=== PATIENT | male | born 1935 | race Caucasian/White ===

== ENCOUNTER 2021-08-04 09:17 | Inpatient (IN) | payer OTHER, MEDICARE ==
[~2021-08-04] VITALS: Ht 177.8 cm; Wt 90.7 kg
[~2021-08-04 09:17] MED LIST: BACTRIM DS TAB1 EACH PO; COLACE100 MG PO; VICODIN ES TAB1 EACH PO; VITAMINS
[2021-08-04 09:20] VITALS: BP 144/95
[2021-08-04] MEDS ORDERED: VITAMIN E1000 UNIT PO (09:30)
[2021-08-04] MEDS ORDERED: PROSCAR 5MG TABL5 M1 PO (09:30)
[2021-08-04] MEDS ORDERED: FLOMAX0.4 MG PO (09:30)
[2021-08-04] MEDS ORDERED: VITAMIN D310 MC1 PO (09:30)
[2021-08-04 09:49] LABS: ABSOLUTE BASOPHILS 0.1 thou/uL (0.0-0.2); ABSOLUTE EOSINOPHILS 0.4 thou/uL (0.0-0.7); ABSOLUTE LYMPHOCYTES 1.4 thou/uL (0.8-5.3); ABSOLUTE MONOCYTES 0.6 thou/uL (0.0-1.2); ABSOLUTE NEUTROPHILS 3.7 thou/uL (1.6-8.1); BASOPHILS 1.2 %; EOSINOPHILS 5.8 %; HEMATOCRIT 39.8 % (42.0-52.0); HEMOGLOBIN 13.6 gm/dL (14.0-18.0); LYMPHOCYTES 22.5 %; MCH 33.3 pg (26.0-34.0); MCHC 34.2 g/dL (28.0-37.0); MCV 97.3 fL (80.0-100.0); MONOCYTES 9.7 %; MPV 6.8 fl. (7.2-11.1); NUCLEATED RBCS 0 /100WBC; PLATELET COUNT* 257 thou/uL (150-400); POLYS 60.8 %; RBC 4.09 mil/uL (4.50-6.00); RDW-CV 13.9 % (10.5-14.5); WBC 6.2 thou/uL (4.0-11.0)
[2021-08-04 09:55] LABS: CREATININE 0.9 mg/dL (0.6-1.3); POTASSIUM 4.2 mmol/L (3.5-5.1)
[2021-08-04 10:00] LABS: ALBUMIN 3.3 g/dL (3.4-5.0); TOTAL BILIRUBIN 0.5 mg/dL (<0.1-1.0); TOTAL PROTEIN 7.2 g/dL (6.4-8.2)
--- NOTE | 2021-08-04 10:53 | EKG ---
[place] [address] ELECTROCARDIOGRAM REPORT Name: SOHAM PAZ Room: [facility]#: [id number] Admission: 08/04/21 Attend Phys: Discharge: Date of : 35 Date of Service: 08/04/21928 Report #: [id number] THIS REPORT FOR: //name// [facility] ED Test Date: 2021-08-04 Test Time: 09:29:04 Pat Name: RADHAGUSTAVO PAZ Department: Room: Gender: Suture Polisher: : 1935 Requested By: Sarkis Rankin Order Number: [id number] MD: Gucci Lilly Measurements Intervals [place] Rate: 65 P: 43 ND: 218 QRS: -11 QRSD: 121 T: 60 QT: 443 QTc: 461 Interpretive Statements Sinus rhythm Borderline prolonged ND interval nonspecific intraventricular conduction defect Compared to ECG 03/04/2017 14:28:57 no change Electronically Signed On 08-04-2021 10:52:46 PEDIATRIC CARDIOLOGIST by Gucci Lilly [email or web address] <ELECTRONICALLY SIGNED> By: Gucci Lilly MD, FAC 08/04/21 1052 Gucci Lilly MD, [facility] /EPI
[2021-08-04 12:40] LABS: CHOLESTEROL 264 mg/dL (<200); HDL CHOLESTEROL 46 mg/dL (>40); LDL CHOLESTEROL 201 mg/dL (<100); TC:HDL 5.7 Ratio (Not establshd); TRIGLYCERIDE 85 mg/dL (<150); VLDL 17 mg/dL (<40)
[2021-08-04 12:41] LABS: SERUM ASSESSMENT Clear
[2021-08-04 13:18] VITALS: BP 140/83
[2021-08-04 13:25] VITALS: BP 156/86
--- NOTE | 2021-08-04 13:33 | NUR ---
CALL TO SPEECH THERAPY TO GET ESTIMATE ON TIME. SPOKE WITH COREY. SHE STATED THE ORDER WAS NOT SEEN BECAUSE IT WAS NOT PUT IN WHERE THERAPY COULD SEE IT. NEW ORDER PUT IN APPROPRIATELY WITH SPEECH THERAPY HELP. SPEECH TO SEE PATIENT AROUND 1500 TODAY FOR SWALLOW STUDY. NPO UNTIL ORDERS AFTER SWALLOW STUDY.
--- NOTE | 2021-08-04 13:44 | NUR ---
LATE ENTRY: REPORT RECEIVED FROM ARSEN HELMS. PATIENT WENT TO PCP FOR CHECKUP AND LEFT SIDED WEAKNESS. EMS BROUGHT PATIENT TO ED. NEGATIVE FOR COVID AND SEPSIS. 20G LAC. A&OX4. PATIENT TO [facility] FOR BOARDING UNTIL ROOM AVAILABLE.
[2021-08-04 16:30] VITALS: BP 175/84
[2021-08-04] MEDS ORDERED: METHENAMINE HIPP1 G1 PO (17:18)
[2021-08-04] MEDS ORDERED: SUPER THERAVIT1 EACH PO (17:19)
[2021-08-04] MEDS ORDERED: MACULAR HEALTH1 EAC1 PO (17:20)
[2021-08-04] MEDS ORDERED: REPLENEX (17:22)
[2021-08-04] MEDS ORDERED: OMEGA-3 FISH1200 MG PO (17:23)
[2021-08-04] MEDS ORDERED: VITAMIN C1000 MG PO (17:23)
--- NOTE | 2021-08-04 18:07 | NUR ---
ASSUMED PT CARE AT 1430. MRI TECHS HERE AT 1435 TO TAKE PT TO MRI. PT TRANSFERRED TO MRI AT 1445. PT RETURNED FROM MRI AT 1535 IN STABLE CONDITION. MEDICAL RECORDS ANALYST HERE TO DO ECHO ON PT AT 1540. SPEECH THERAPIST HERE AROUND 1610 TO DO SWALLOW EVALUATION. SPEECH TERAPIST REPORTED THAT PT DID GREAT WITH SWALLOW STUDY AND NO DEFECITS. VS AND NIH DONE AT 1630. PT HAS VERY MILD FACIAL DROOP AND MILD DYSARTHRIA. PHOTO TECHNICIAN STRONG EQUAL. AT 1715, FOUND PT STANDING AT SIDE OF BED TRYING TO URINATE AND URINE ALL OVER THE FLOOR. AT BEDSIDE. PT HAD VOIDED 400 ML IN URINAL AND LARGE AMOUNT URINE ALL OVER THE FLOOR. PARTIAL BATH AND PERICARE GIVEN. FLOOR CLEANED AND HAD HOUSEKEEPING MOP FLOOR. DR. RIZZO HERE AROUND 1730 AND UPDATED ON PT CONDITION. UPDATED HER ON MRI REPORT AND CAROTID US. NEUROLOGY HAS NOT SEEN PT YET. MEDICATION RECONCILIATION COMPLETED. PT A/O X 4. LUNG SOUNDS CLEAR ALL VICTORIA BILATERALLY. HEART TONES S1S2. BOWEL SOUNDS POSITIVE X 4 QUADS. REPORTS THAT PT SELF CATHS BID BECAUSE HE IS UNABLE TO EMPTY BLADDER AND THAT HE HAS BEEN SEEING UROLOGIST 10 TO 15 YEARS. PT [place] AND REPORTS HE REFUSES TO WEAR HEARING AIDS. REPORTS PT NEEDS CATARACT SURGERY AND PT REFUSES TO HAVE IT DONE. REPORTS PT HAS INTERMITTANT CONFUSION AT HOME AND THAT SHE TAKES CARE OF PT. PT GIVEN DINNER TRAY AND PT ATE 100% S DIFFICULTY. PT TRANSFERRED TO ROOM 220 IN STABLE CONDITION ACCOMPANIED BY 2 RNS AT 1750. REPORT GIVEN TO ADRIAN LEGER AND SHE ASSUMED CARE AT THIS TIME (1807).
[2021-08-04 20:15] VITALS: BP 143/62
[2021-08-05 01:01] VITALS: BP 116/63
[2021-08-05 06:14] VITALS: BP 114/67
--- NOTE | 2021-08-05 06:27 | NUR ---
PATIENT ADMISSION HISTORY AND ASSESSMENT WAS COMPLETED CHARTED. IV REMAINS SALINE LOCKED. PATIENT HAD NO COMPLAINTS. PATIENT UP STANDBY TO BATHROOM. NIH REMAINS 2-3. WILL CONTINUE TO MONITOR.
[2021-08-05 08:00] VITALS: BP 142/70
[2021-08-05 12:08] VITALS: BP 122/61
[2021-08-05 15:35] VITALS: BP 163/62
[2021-08-05 20:59] VITALS: BP 138/69
[2021-08-06] VITALS: BP 146/73
[2021-08-06 05:54] VITALS: BP 133/70
[2021-08-06 08:00] VITALS: BP 166/80
--- NOTE | 2021-08-06 09:41 | NUR ---
PT IS ABLE TO COMMUNICATE HIS NEEDS TO STAFF WITH MINOR DIFFICULTY; HE IS [id number] AND FORGETFUL AT TIMES. HE HAS DENIED THE NEED FOR PAIN MEDICATION UP TO 0700 THIS MORNING. PT STRAIGHT CATH SELF BID; SUPPLIES PROVIDED; PT REMINDED OF ASEPTIC TECHNIQUE; HE DOES ALSO VOID AT TIMES. POSSIBLE DISCHARGE TOMORROW.
--- NOTE | 2021-08-06 09:50 | CON ---
[facility] [address] [place] [address] CONSULTATION Name: SOHAM PAZ Room: [address] IN M.R.#: [id number] Admission: 08/04/21 Attend Phys: Partha Green Discharge: Date of : 35 Report #: [id number] THIS REPORT FOR: cc: Arielle Duke Maggie M. DO [place], Roxane S. DO ~ DATE OF CONSULTATION: 08/05/2021 NEUROLOGY CONSULT LOCATION: [facility]. HISTORY OF PRESENT ILLNESS: The patient is an 86-year-old male who states that yesterday he had difficulty dressing himself and he had difficulty walking. He went to his primary care physician's office. They felt that he had left sided weakness and he was brought to the emergency room. Apparently, the patient has had TIAs in the past. He was not taking aspirin on a daily basis. He states that when he took aspirin on a daily basis it caused nosebleeds, so he stopped doing that. Today, the patient states that he feels back to his normal self. He does not have any difficulty speaking. He does not have any weakness in his arms or legs. PAST MEDICAL HISTORY: TIA, vitamin D deficiency, hypertension. PAST SURGICAL HISTORY: Bilateral hip replacement. MEDICATIONS AT HOME: Vitamin D3, finasteride 5 mg daily, Flomax 0.4 mg daily, vitamin E daily. ALLERGIES: CODEINE. VITAL SIGNS: Temperature 37, pulse rate 77, respiratory rate 18, blood pressure 142/70, bedside pulse oximetry 96% on room air. LABORATORY DATA: Hematology: White blood cell count 6.2, hemoglobin 13.6, hematocrit 39.8, MCV 97.3, platelet count 257,000. Chemistry: Sodium 138, potassium 4.2, chloride 102, carbon dioxide 29, BUN 22, creatinine 0.9, GFR 80, glucose 99. Lactic acid 1.1, calcium 9, total bilirubin 0.5, AST 17, ALT 22, alkaline phosphatase 60, total protein 7.2, albumin 3.3, triglycerides 85, cholesterol 264, LDL cholesterol 201, HDL cholesterol 46, lipase 81. IMAGING STUDIES: MRI of the head shows an acute small cortical infarct involving the watershed zone in the right parietal occipital convexity and diffuse cerebral atrophy, most prominent involving the frontal lobes and small vessel ischemic disease. Carotid Doppler demonstrates [id number] [id number] CONSULTATION Name: BRANDIRADHAGUSTAVO Zhang Room: [address]#: [id number] Admission: 08/04/21 Attend Phys: Partha Green Discharge: Date of : 35 Report #: [id number] within the bilateral proximal internal carotid arteries, hemodynamically significant stenosis within the proximal left internal carotid artery greater than 70%, 50-69% stenosis within the right proximal internal carotid artery. CT angiogram is recommended. NEUROLOGIC: Cranial nerves II-XII reveal a mild left facial droop. Motor exam demonstrates the patient able to lift his arms above his head and to lift each leg off the bed; however, he cannot lift either extremity is high on the left side and has a mild hemiparesis. Reflexes are trace throughout. Plantar responses are flexor bilaterally. Coordination demonstrates no dysmetria. IMPRESSION AND PLAN: This patient has a stroke. He also has significant carotid artery disease. I have ordered a CT angiogram for further evaluation. Now the patient may need surgical intervention in the future. Because he had difficulty with aspirin, I have begun Plavix 75 mg daily, but he may have difficulty with this as well. Only time will tell if this will cause nosebleeds as well. I also begin atorvastatin 40 mg daily for his abnormal lipid profile. I thank you for your kind referral of the patient and will continue to follow him with you. <ELECTRONICALLY SIGNED> By: Venita Hetah DO 08/06/21 0950 0935 1824Rzacarias Heath DO /rj
[2021-08-06 10:10] LABS: ABSOLUTE BASOPHILS 0.1 thou/uL (0.0-0.2); ABSOLUTE EOSINOPHILS 0.3 thou/uL (0.0-0.7); ABSOLUTE LYMPHOCYTES 1.5 thou/uL (0.8-5.3); ABSOLUTE MONOCYTES 0.6 thou/uL (0.0-1.2); ABSOLUTE NEUTROPHILS 2.9 thou/uL (1.6-8.1); BASOPHILS 0.9 %; EOSINOPHILS 5.6 %; HEMATOCRIT 40.6 % (42.0-52.0); HEMOGLOBIN 13.7 gm/dL (14.0-18.0); LYMPHOCYTES 27.8 %; MCH 32.9 pg (26.0-34.0); MCHC 33.7 g/dL (28.0-37.0); MCV 97.6 fL (80.0-100.0); MONOCYTES 11.7 %; MPV 6.8 fl. (7.2-11.1); NUCLEATED RBCS 0 /100WBC; PLATELET COUNT* 232 thou/uL (150-400); RBC 4.16 mil/uL (4.50-6.00); RDW-CV 13.8 % (10.5-14.5); WBC 5.4 thou/uL (4.0-11.0)
[2021-08-06 10:17] LABS: INR 1.1; PROTIME 10.9 Seconds (9.20-11.50)
[2021-08-06 10:23] LABS: CALCIUM 8.6 mg/dL (8.5-10.1); CREATININE 1.1 mg/dL (0.6-1.3); MAGNESIUM 2.2 mg/dL (1.8-2.4); PHOSPHORUS* 3.1 mg/dL (2.5-4.9); TOTAL BILIRUBIN 0.5 mg/dL (<0.1-1.0); TOTAL PROTEIN 6.8 g/dL (6.4-8.2)
[2021-08-06 12:00] VITALS: BP 136/72
[2021-08-06 16:00] VITALS: BP 136/69
--- NOTE | 2021-08-06 18:42 | NUR ---
ASSUMED CARE OF PT AT 0730. PT A&0X4, NIH 2, DENIES ANY PAIN OR SHORTNESS OF BREATH. UP SBA TO BATHROOM. AT BEDSIDE THIS MORNING AND UPDATED ON CURRENT PLAN OF CARE. DISCHARGE PLANNING HOME WITH HH VS SNF. NO ACUTE CHANGES THROUGHOUT SHIFT. REFER TO CHARTING. AM ASSESSMENT CHARTED. MEDS PER MAR, CALL LIGHT WITHIN REACH. WILL CONTINUE PLAN OF CARE.
[2021-08-06 20:00] VITALS: BP 134/69
[2021-08-07 00:53] VITALS: BP 123/63
[2021-08-07 04:05] LABS: GLYCOHEMOGLOBIN (HGB A1C) 5.6 % (4.8-5.6)
--- NOTE | 2021-08-07 04:29 | NUR ---
PATIENT SLEPT WELL DURING THIS SHIFT. PT ALERT/ORIENTED X4, FORGETFUL. PT ON ROOM AIR; SALINE LOCKED. 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 PT DENIES PAIN/NAUSEA. PT SCORED 2 ON NIH STROKE SCALE. PT VOIDS PER URINAL AND ALSO STRAIGHT CATHS HIMSELF. PT DENIES NEEDS AT THIS TIME. FREQUENTLY USED ITEMS AND CALL LIGHT WITHIN REACH. SIDERAILS UPX3 AND BED ALARM ON. WILL CONTINUE TO MONITOR.
[2021-08-07 04:30] VITALS: BP 136/72
[2021-08-07 04:30] LABS: HEMOGLOBIN 12.8 gm/dL (14.0-18.0); MCHC 33.8 g/dL (28.0-37.0); MCV 97.7 fL (80.0-100.0); MPV 6.8 fl. (7.2-11.1); RBC 3.89 mil/uL (4.50-6.00); RDW-CV 13.8 % (10.5-14.5); WBC 5.1 thou/uL (4.0-11.0)
[2021-08-07 04:39] LABS: CALCIUM 8.3 mg/dL (8.5-10.1); CREATININE 1.1 mg/dL (0.6-1.3); MAGNESIUM 2.1 mg/dL (1.8-2.4); POTASSIUM 4.1 mmol/L (3.5-5.1)
[2021-08-07 08:00] VITALS: BP 140/71
[2021-08-07] MEDS ORDERED: LIPITOR 40 MG T40 M1 PO (11:32)
[2021-08-07] MEDS ORDERED: ASA81BEC PO (11:32)
[2021-08-07] MEDS ORDERED: CLOPIDOGREL75 MG PO (11:32)
--- NOTE | 2021-08-07 13:55 | NUR ---
Histological Illustrator: Met with patient and spouse. Reviewed new medications and secondary stroke prevention. patient is hard of hearing and has bilateral cataracts. Patient describes continued numbness in left had, mild left facial droop. Plan is home with spouse today.
[2021-08-07 15:39] VITALS: BP 140/71
--- NOTE | 2021-08-07 16:28 | 2DMMODE ---
[place] [address] 2 D/M-MODE ECHOCARDIOGRAM Name: SOHAM PAZ Room: [address] IN [facility].#: [id number] Admission: 08/04/21 Attend Phys: Lakisha Weaver Discharge: Date of : 35 Date of Service: 08/07/21 1627 Report #: [id number] THIS REPORT FOR: cc: Arielle Duke Maggie M. DO Holkins, John M. MD [facility] ~ ADDENDUM APPROVED REPORT Study performed: 08/04/2021 15:40:45 EXAM: Comprehensive 2D, Doppler, and color-flow Echocardiogram Patient Location: In-Patient Room #: PACU Status: routine BSA: 2.09 HR: 63 bpm BP: 140/83 mmHg Rhythm: NSR Other Information Study Quality: Good Indications WEAKNESS Echo Enhancing Agent Indication: Rule out Shunt Agent(s) / Amount(s) Used: Agitated Saline 10 cc 2D Dimensions IVSd: 14.23 (7-11mm) LVOT Diam: 20.44 (18-24mm) LVDd: 53.51 mm PWd: 11.76 (7-11mm) LVDs: 31.04 (25-40mm) Aortic Root: 31.81 mm Volumes Left Atrial Volume (Systole) LA ESV Index: 33.40 mL/m2 Aortic Valve AoV Peak Kamran.: 1.50 m/s AO Peak Gr.: 8.95 mmHg LVOT Max P.24 mmHg AO Mean Gr.: 4.90 mmHg LVOT Mean P.78 [place] [address] 2 D/M-MODE ECHOCARDIOGRAM Name: PAZSOHAM Leatha Room: [address] [place] [facility]#: [id number] Admission: 08/04/21 Attend Phys: Lakisha Weaver Discharge: Date of : 35 Date of Service: 08/07/21 1627 Report #: [id number] LVOT Max V: 1.03 m/s AO V2 VTI: 33.00 cm LVOT Mean V: 0.60 m/s KARRIE (VTI): 2.31 cm2 LVOT V1 VTI: 23.19 cm Mitral Valve MV Mean Gr.: 1.20 mmHg E/A Ratio: 0.71 MV Decel. Time: 344.60 ms MV E Max Kamran.: 0.68 m/s MV PHT: 99.93 ms MVA (PHT): 2.20 cm2 TDI E/Lateral E': 8.50 E/Medial E': 9.71 Medial E' Kamran.: 0.07 m/s Lateral E' Kamran.: 0.08 m/s Pulmonary Valve PV Peak Kamran.: 0.94 m/s PV Peak Gr.: 3.54 mmHg Tricuspid Valve RAP Estimate: 5.00 mmHg TR Peak Gr.: 21.57 mmHg RVSP: 26.00 mmHg PA Pressure: 26.00 mmHg Left Ventricle The left ventricle is normal size. There is normal LV segmental wall motion. Mild septal hypertrophy is present. Left ventricular systolic function is normal. The left ventricular ejection fraction is within the normal range. LVEF is 50-55%. Grade I - abnormal relaxation pattern. Right Ventricle The right ventricle is normal size. The right ventricular systolic function is normal. Atria Left atrium is mildly dilated. The interatrial septum is intact with no evidence for an atrial septal defect. The right atrium size is normal. Aortic Valve Mild aortic valve sclerosis. No aortic regurgitation is present. There is no aortic valvular stenosis. Mitral Valve There is mitral annular calcification. [place] [address] 2 D/M-MODE ECHOCARDIOGRAM Name: SOHAM PAZ Leatha Room: [address] [place] [facility]#: [id number] Admission: 08/04/21 Attend Phys: Lakisha Weaver Discharge: Date of : 35 Date of Service: 08/07/21 1627 Report #: [id number] Mild mitral stenosis. Tricuspid Valve The tricuspid valve is normal in structure. Trace tricuspid regurgitation. No pulmonary hypertension. Pulmonic Valve Pulmonic valve is not well visualized. Trace pulmonic regurgitation. Great Vessels The aortic root is normal in size. IVC is not well visualized. Pericardium There is no pericardial effusion. <Conclusion> Mild septal hypertrophy is present. LVEF is 50-55%. Left atrium is mildly dilated. Mild aortic valve sclerosis. Moderate mitral regurgitation. The interatrial septum is intact with no evidence for an atrial septal defect. <ELECTRONICALLY SIGNED> By: Elroy Ordoñez MD, FACC 08/07/21 1627 [id number] Elroy Ordoñez MD, FACC /INF
== END 2021-08-07 16:33 | disposition home or self-care (01) | DRG 65 ==
LOC: M.ERS 09:17 → M.TBA-ER 11:20 → M.2W 11:20
PROVIDERS: Emergency Medicine Emergency Medical Services; Internal Medicine; Psychiatry & Neurology Neurology; ADMIT Internal Medicine; ATTEND Internal Medicine
DX: I63.232 Cerebral infarction due to unspecified occlusion or stenosis of left carotid arteries (principal); E44.1 Mild protein-calorie malnutrition; G83.24 Monoplegia of upper limb affecting left nondominant side; Z68.28 Body mass index [BMI] 28.0-28.9, adult; Z88.8 Allergy status to other drugs, medicaments and biological substances; Z20.822 Contact with and (suspected) exposure to COVID-19; I10 Essential (primary) hypertension; D64.9 Anemia, unspecified; E78.5 Hyperlipidemia, unspecified; Z86.73 Personal history of transient ischemic attack (TIA), and cerebral infarction without residual deficits